=== PATIENT | female | born 1990 | race Caucasian/White ===

== ENCOUNTER 2017-06-29 21:59 | Emergency (ER) | payer OTHER ==
[2017-06-29 22:04] VITALS: BP 139/94
[2017-06-30] MEDS ORDERED: Tetan/Diph/Pertus SYR(Tdap)* 0.5 ML SYR(BOOSTRIX) use SYR IM ONE (00:16)
--- NOTE | 2017-06-30 00:18 | ED ---
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 Minimal blood at site. Source patient unknown history however agreed to testing. Patient cleaned sight thoroughly directly after occurred. Unknown last tetanus. No other complaints at this time. No PMHx. - History of Current Complaint Chief Complaint: EDExposureBodyFluid Stated Complaint: STUCK WITH NEEDLE Time Seen by Provider: 06/29/17 22:32 Date of Incident: 06/29/17 Time of Incident: 22:00 Job Performing at Time of Incident: giving SQ insulin to patient Mechanism of Injury: through skin, puncturing thumb Blood on Needle: No Depth of Needlestick: Scratch - very superficial puncture Bleeding at Site: Yes - minimal Body Fluid Exposure: Blood, Visceral Fluids Treatment DIRECTOR IT: Cleaned Wound - Source Information HIV: Unknown Hepatitis: Unknown - Other Discussed Post-Exposure prophylaxis (PEP) for HIV: Declined Discussed PEP for Hepatitis-B: Declined Serologic Testing (HIV/HBV) Declined by Patient: No (Must be retained for 90 days, if drawn) - accepted and bloodwork drawn - Hand Image Hands: 1 - scratch/puncture wound PMH/Surg Hx/FS Hx/Imm Hx Endocrine/Hematology History: Denies: Hx Diabetes Cardiovascular History: Denies: Hx Hypertension Respiratory History: Denies: Hx Asthma - Surgical History Surgery Procedure, Year, and Place: n/a - Immunization History Date of Tetanus Vaccine: unknown, updated today 06/30/17 Immunizations Up to Date: Yes Infectious Disease History: No Infectious Disease History: Denies: Hx Hepatitis, Hx Human Immunodeficiency Virus (HIV), Traveled Outside the [place] in Last 30 Days - Family History Known Family History: Positive: None - Social History Alcohol Use: None Substance Use Type: Reports: None Smoking Status (MU): Unknown if Ever Smoked Review of Systems Constitutional: Negative Cardiovascular: Negative Respiratory: Negative Positive: Other - needlestick All Other Systems Reviewed And Are Negative: Yes Physical Exam Triage Information Reviewed: Yes Vital Signs On Initial Exam: Initial Vitals Temp Pulse Resp BP Pulse Ox 98 F 98 18 139/94 100 06/29/17 22:02 06/29/17 22:02 06/29/17 22:02 06/29/17 22:02 06/29/17 22:02 Vital Signs Reviewed: Yes Appearance: Positive: Well-Appearing, No Pain Distress, Well-Nourished Skin: Positive: Warm, Skin Color Reflects Adequate Perfusion, Dry, Other - small scratch/puncture wound to anterior left thumb, finger pad, without active bleeding, hardly visible. Negative: Cold, Cyanosis @, Pale, Erythema @ Eyes: Positive: Conjunctiva Clear ENT: Positive: Hearing grossly normal Neck: Positive: Supple, Nontender Respiratory/Lung Sounds: Positive: Clear to Auscultation, Breath Sounds Present. Negative: Rales, Rhonchi, Wheezes Cardiovascular: Positive: Normal, RRR, Pulses are Symmetrical in both Upper and Lower Extremities - 2+. Negative: Murmur, Rub Musculoskeletal: Positive: Normal, Strength/ROM Intact. Negative: Limited @, Pain @ Neurological: Positive: Normal, Sensory/Motor Intact, Alert, Oriented to Person Place, Time - [place] Coma Scale Coma Scale Total: 15 Diagnostics - Vital Signs Vital Signs Temp Pulse Resp BP Pulse Ox 06/29/17 22:02 98 F 98 18 139/94 100 - Laboratory Lab Statement: Any lab studies that have been ordered have been reviewed, and results considered in the medical decision making process. Needlestick Course/Dx - Course Course Of Treatment: discussed PEP treatment option. low risk exposure due to SQ injection and very superficial puncture wound. tetanus was updated. bloodwork drawn. awaiting results. source patient blood work obtianed and awaiting results. will follow up with ming kassandra. wound was irrigated and cleaned. given ira information. aware of worsening signs and symptoms. told to return if changes mind about starting PEP. - Diagnoses Provider Diagnoses: Needlestick injury accident Discharge - Discharge Plan Condition: Stable Disposition: HOME Patient Education Materials: Needle Stick Injuries (ED) Referrals: Shana Cabrera MD [Primary Care Provider] - Ira MEDRANO,Blas Wallace [Medical Doctor] - Additional Instructions: Follow up with Ming Lay for blood work results both yours and source patient. If you develop any new or worsening symptoms please seek medical attention. Follow up with PCP. If you decide you would like to be treated with prophylactic medication please return or make an appointment with Dr José.
[2017-06-30 00:31] LABS: Hematocrit 41 % (35-47); Hemoglobin 13.9 g/dl (12.0-16.0); Mean Corpuscular HGB Conc 34 g/dl (31-36); Mean Corpuscular Hemoglobin 30 pg (27-31); Mean Corpuscular Volume 89 fL (80-97); Mean Platelet Volume 8 um3 (7.4-10.4); Red Blood Count 4.63 10^6/ul (4.0-5.4); Red Cell Distribution Width 12 % (10.5-15); White Blood Count 7.8 10^3/ul (3.5-10.8)
[2017-06-30 00:46] LABS: ALT 7 U/L (7-52); AST 11 U/L (13-39); Albumin 4.8 g/dL (3.2-5.2); Alkaline Phosphatase 35 U/L (34-104); Anion Gap 8 mmol/L (2-11); BUN/Creatinine Ratio 15.1 (8-20); Blood Urea Nitrogen 11 mg/dL (6-24); CO2 Carbon Dioxide 25 mmol/L (22-32); Calcium 9.8 mg/dL (8.6-10.3); Chloride 101 mmol/L (101-111); EGFR Non-African American 97.9 (>60); Globulin 2.8 g/dL (2-4); Glucose 95 mg/dL (70-100); Potassium 3.9 mmol/L (3.5-5.0); Sodium 134 mmol/L (133-145); Total Protein 7.6 g/dL (6.4-8.9)
[2017-06-30 00:52] LABS: Manual Entry Verification CAR0052; Rapid HIV INT CONT QC Line Present; Rapid HIV Kit Lot# H017003
== END 2017-06-30 00:32 | disposition home or self-care (01) ==
LOC: ED 21:59
DX: S61.032A Puncture wound without foreign body of left thumb without damage to nail, initial encounter (principal); W46.1XXA Contact with contaminated hypodermic needle, initial encounter; Y93.9 Activity, unspecified; Y92.239 Unspecified place in hospital as the place of occurrence of the external cause
CPT/HCPCS: 36415; 80053; 84702; 85025; 86703; 86706; 86803; 87340; 90471; 90715; 99282